=== PATIENT | female | born 1970 | race Caucasian/White ===

== ENCOUNTER 2018-04-26 08:01 | Day surgery (SDC) | payer OTHER ==
[~2018-04-26] VITALS: Ht 172.7 cm; Wt 77.1 kg
[~2018-04-26 08:01] MED LIST: AZIT250 PO; BENZ100A PO; CITA20; VALA500 PO; ZYRTEC10 M1 PO
== END 2018-04-26 22:40 | disposition home or self-care (01) ==
LOC: ORSCMMR 08:01 → ORD 09:00 → ORSCMMR 09:00
PROVIDERS: Internal Medicine Gastroenterology
PROC: 0DBM8ZX Excision of Descending Colon, Via Natural or Artificial Opening Endoscopic, Diagnostic (ICD-10-PCS; principal; 2018-04-26 09:00)
DX: Z12.11 Encounter for screening for malignant neoplasm of colon (principal); D12.4 Benign neoplasm of descending colon; K64.8 Other hemorrhoids; F32.9 Major depressive disorder, single episode, unspecified; B00.9 Herpesviral infection, unspecified; Z79.899 Other long term (current) drug therapy
CPT/HCPCS: 84703; 88305; J2250; J7120

== ENCOUNTER 2020-12-22 20:06 | Emergency (ER) | payer OTHER ==
[~2020-12-22] VITALS: Ht 172.7 cm; Wt 70.3 kg
== END 2020-12-22 21:40 | disposition home or self-care (01) ==
LOC: ER 20:06
DX: S61.052A Open bite of left thumb without damage to nail, initial encounter (principal); Z79.899 Other long term (current) drug therapy; Z88.1 Allergy status to other antibiotic agents; Z88.8 Allergy status to other drugs, medicaments and biological substances; Z23 Encounter for immunization; W54.0XXA Bitten by dog, initial encounter
CPT/HCPCS: 90471; 90714; 99282-25; A9270

== ENCOUNTER → 2022-03-24 | Outpatient (CLI) | payer OTHER ==
[~2022-03-24] MED LIST changes: +AMOCLA875 PO
[2022-03-24 19:30] LABS: BASOPHILS ABSOLUTE AUTO 0.03 K/mm3 (0.00-0.23); BASOPHILS PERCENT AUTO 0 % (0-2); EOSINOPHILS ABSOLUTE AUTO 0.15 K/mm3 (0.00-0.68); EOSINOPHILS PERCENT AUTO 2 % (0-6); Hematocrit 40.2 % (33.0-51.0); Hemoglobin 13.5 g/dL (11.5-16.0); IMMATURE GRAN ABSOLUTE AUTO 0.02 K/mm3 (0.00-0.10); IMMATURE GRAN PERCENT AUTO 0 % (0-1); LYMPHOCYTES ABSOLUTE AUTO 1.86 K/mm3 (0.84-5.20); LYMPHOCYTES PERCENT AUTO 26 % (21-46); MONOCYTES ABSOLUTE AUTO 0.68 K/mm3 (0.16-1.47); MONOCYTES PERCENT AUTO 10 % (4-13); Mean Corpuscular HGB 30.3 pg (26.0-34.0); Mean Corpuscular HGB Conc 33.6 g/dL (31.5-36.5); Mean Corpuscular Volume 90 fL (80-100); Mean Platelet Volume 11.1 fL (9.1-12.4); NEUTROPHILS ABSOLUTE AUTO 4.39 K/mm3 (1.96-9.15); NEUTROPHILS PERCENT AUTO 62 % (41-73); Platelet Count 244 K/mm3 (150-400); RDW Coefficient Variation 12.2 % (11.7-14.2); RDW Standard Deviation 40.1 fL (35.1-46.3); Red Blood Cell Count 4.45 M/mm3 (3.80-5.20); White Blood Cell Count 7.13 K/mm3 (4.00-11.30)
[2022-03-24 20:16] LABS: Albumin, Blood 3.4 g/dL (3.4-5.0); Albumin/Globulin Ratio 0.9 (0.8-1.8); Bilirubin, Total 0.4 mg/dL (0.1-1.0); Bun/Creatinine Ratio 14.6 (12.0-20.0); Creatinine, Blood 0.82 mg/dL (0.40-1.00); Globulin, Blood 3.6 g/dL (2.2-4.0); Potassium, Blood 4.1 mmol/L (3.5-5.5); Thyroid Stimulating Hormone 1.08 uIU/mL (0.360-4.800)
== END | disposition home or self-care (01) ==
LOC: LAB SHORT 12:30 → LAB 12:30
PROVIDERS: Physician Assistant
DX: Z51.81 Encounter for therapeutic drug level monitoring (principal); Z79.899 Other long term (current) drug therapy
CPT/HCPCS: 80053; 82306; 84443; 85025

== ENCOUNTER 2023-04-04 05:56 | Emergency (ER) | payer OTHER ==
[~2023-04-04] VITALS: Ht 172.7 cm; Wt 77.1 kg
[2023-04-04 06:24] VITALS: BP 132/99
[2023-04-04] MEDS ORDERED: GABA100 PO (07:23)
[2023-04-04] MEDS ORDERED: Lisinopril10 MG PO (07:23)
[2023-04-04] MEDS ORDERED: PRED20 PO (07:23)
[2023-04-04] MEDS ORDERED: IBU600 M1 PO (07:23)
[2023-04-04] MEDS ORDERED: BACLOFEN10 M4 PO (07:24)
[2023-04-04] MEDS ORDERED: GABA300 PO (09:56)
[2023-04-04] MEDS ORDERED: Robaxin750 MG PO (09:56)
== END 2023-04-04 10:00 | disposition home or self-care (01) ==
LOC: ER 05:56
DX: M62.830 Muscle spasm of back (principal); M54.6 Pain in thoracic spine; M54.2 Cervicalgia; Z88.1 Allergy status to other antibiotic agents; Z88.2 Allergy status to sulfonamides; Z79.899 Other long term (current) drug therapy
CPT/HCPCS: 96372; 99283; A9270; J1885

== ENCOUNTER → 2023-07-31 | Outpatient (CLI) | payer OTHER ==
[~2023-07-31] MED LIST changes: +BACLOFEN10 M4 PO; +GABA100 PO; +GABA300 PO; +IBU600 M1 PO; +Lisinopril10 MG PO; +PRED20 PO; +Robaxin750 MG PO
[2023-08-01 15:09] LABS: HPV 16 Negative (Negative); HPV 18 Negative (Negative); HPV OTHER HR TYPES Negative (Negative)
== END ==
LOC: LAB SHORT 12:20 → LAB 12:20
PROVIDERS: Family Medicine
DX: Z12.4 Encounter for screening for malignant neoplasm of cervix (principal)
CPT/HCPCS: 87624; G0145